=== PATIENT | female | born 1985 | race Caucasian/White ===

== ENCOUNTER 2022-01-30 16:12 | Emergency (ER) | payer OTHER, SELFPAY ==
--- NOTE | 2022-01-30 16:25 | ED.URI ---
HPI - URI/Sore Throat General Chief Complaint: Upper Respiratory Infection Stated Complaint: sorethroat,fever Time Seen by Provider: 01/30/22 16:40 Source: patient and RN notes reviewed Mode of arrival: ambulatory Limitations: no limitations History of Present Illness HPI Narrative: 36-year-old female presents with concern for sore throat. She reports yesterday she felt feverish, had body aches and chills. Reports today she has a sore throat that is painful to swallow. She denies known sick contacts. She denies cough, shortness of breath, nausea, vomiting, diarrhea, headache. MD elicited complaint: sore throat Related Data Home Medications Medication Instructions Recorded Confirmed No Home Medications 01/30/22 01/30/22 Allergies Allergy/AdvReac Type Severity Reaction Status Date / Time No Known Allergies Allergy Verified 01/30/22 16:36 Review of Systems Review of Systems: CONSTITUTIONAL: Reports malaise, chills, sweats, or fever. EYES: Denies visual changes, redness, or discharge. ENT: Denies rhinorrhea, congestion, sinus pain, otalgia. Reports sore throat. CARDIOVASCULAR: Denies chest pain, palpitations, or edema. RESPIRATORY: Reports cough. Denies dyspnea. GASTROINTESTINAL: Denies abdominal pain, nausea, vomiting, diarrhea SKIN: Denies rash or itching. MUSCULOSKELETAL: Reports myalgia. NEUROLOGIC: Denies headache. All systems reviewed & are unremarkable except as noted in HPI and below PMFSH Comments At time of signature, agree with nursing past medical, surgical, social and family history. There is no relevant family history pertinent to the presenting complaint Exam Narrative: GENERAL: Well-appearing, well-nourished, and in no acute distress. HEAD: Normocephalic EYES: PERRLA, conjunctivae clear ENT: Nares clear. Mucous membranes moist. TM pearly adams with sharp light reflex bilaterally; no tragal tenderness. Oropharynx erythematous without lesions. Tonsils enlarged and without exudate, no drooling, no hoarseness, no trismus, uvula midline. NECK: Supple. No lymphadenopathy CHEST: Clear to auscultation, breath sounds equal. No wheezing, rhonchi, rales, or stridor. No respiratory distress, speaks in full sentences. HEART: Regular rate and rhythm. No murmur heard. SKIN: Warm, dry, no rash. NEURO: Alert and oriented x3. PSYCH: Normal mood and affect Course Course Emergency Course: Patient is aware of diagnosis, understands and agrees to treatment plan. Anticipatory guidance given. Patient agrees to follow-up as directed and is aware of reasons to seek care at the emergency department. Portions of this record may have been created with voice recognition software Level of Care: Express Care Visit Vital Signs Vital signs: Reviewed. MDM - URI/Sore Throat MDM Narrative Medical decision making narrative: Differential diagnosis considered: Schmidt virus, strep pharyngitis, allergic rhinitis, upper respiratory tract infection, sinusitis, rhinosinusitis, nasopharyngitis. viral pharyngitis, otitis media, otitis externa, pneumonia, bronchitis, viral cough syndrome, viral syndrome, and influenza. Exam findings show no acute concerns or changes; patient is non-toxic appearing and is in no distress. Patient is appropriate for outpatient treatment and follow-up. Lab Data Attestation: I reviewed the patient's lab results. Critical Care Time Critical Care Time Critical Care Time: No Discharge Plan Discharge Clinical Impression: Acute streptococcal pharyngitis Patient Disposition: Home, Self-Care Condition: Stable Instructions: Antibiotic Form, Strep Throat (ED) Additional Instructions: -Take the medication as prescribed. Throw away the toothbrush after 24hours of antibiotic. -Eat and drink things that are easy to swallow, like tea or soup, or popsicles to suck on. -Oral rinses such as: Salt water gargles and/or may use topical anesthetic (eg. Chloraseptic spray) or lozenges to relieve dryness or throat pain
[2022-01-30 16:34] VITALS: BP 117/72; PULSE 69; RESP 16; TEMP 36.4; O2SAT 100
== END 2022-01-30 16:55 | disposition home or self-care (01) ==
PROVIDERS: Emergency Provider Nurse Practitioner
DX: J02.0 Streptococcal pharyngitis (principal)
CPT/HCPCS: 87880; 99203; G0463

== ENCOUNTER → 2022-03-31 12:03 | Outpatient (CLI) | payer OTHER, SELFPAY ==
--- NOTE | ~2022-03-31 | US_ITS ---
EXAMINATION: US thyroid DATE: 03/31/2022 12:21 INDICATION: Nontoxic goiter, unspecified. TECHNIQUE: Multiple ultrasound images of the thyroid were obtained. COMPARISON: None. FINDINGS: The right thyroid lobe measures 3.4 x 1.6 x 1.4 cm. The left thyroid lobe measures 3.2 x 1.3 x 1.2 c m. In the left thyroid lobe, there is a 3 mm nodule. IMPRESSION: 1. Small thyroid nodule, likely not clinically significant. No follow-up is needed. Reviewed, dictated and finalized at location B. IMPRESSION: 1. Small thyroid nodule, likely not clinically significant. No follow-up is nee ded.
== END ==
PROVIDERS: PCP Family Medicine; Visit Provider Family Medicine
DX: E04.9 Nontoxic goiter, unspecified (principal)
CPT/HCPCS: 76536

== ENCOUNTER 2022-09-04 10:42 | Emergency (ER) | payer OTHER, SELFPAY ==
[2022-09-04 11:54] VITALS: BP 117/88; PULSE 65; RESP 18; TEMP 36.7; O2SAT 100
--- NOTE | 2022-09-04 12:46 | ED.URI ---
HPI - URI/Sore Throat General Chief Complaint: Upper Respiratory Infection Stated Complaint: nasal congestion Time Seen by Provider: 09/04/22 12:46 Source: patient and RN notes reviewed Mode of arrival: ambulatory Limitations: no limitations History of Present Illness HPI Narrative: 37-year-old female presented for complaints of runny nose and cough for 10 days. She also endorses a skin lesion to the left nostril which gets yearly. Patient also endorses right ear pain. She has been taking Tylenol p.m. , Claritin,and Motrin for symptoms. denies Shortness of breath, tinnitus, dizziness, nausea, vomiting, diarrhea, fevers or chills. MD elicited complaint: cough Related Data Allergies Allergy/AdvReac Type Severity Reaction Status Date / Time morphine Allergy Intermediate Abdominal Verified 09/04/22 12:29 Pain Iodinated Contrast Media Allergy Mild Abdominal Verified 09/04/22 12:29 Pain Review of Systems Review of Systems: ROS per HPI PMFSH Past Medical History Medical History delivery affecting Gallbladder & bile duct stone, acute cholecystitis and obstruction Family History Family History Father Alcoholism in family Mother History of stroke Social History Social History Social History: Smoking status: Never smoker Second hand tobacco smoke exposure: No Alcohol intake: current Alcohol use details: Occasionally Substance use: never Substance use type: does not use Gender identity (if verbalized by the patient): Male Sexual Orientation (if Verbalized by the Patient): Straight or Heterosexual Exam Narrative: GENERAL: well-appearing EYES: PERRLA, conjunctivae clear ENT: Mucous membranes moist. Left nare with firm erythematous lesion approx 1cm diameter to nasal vestibule, no active drainage. TMs pearly adams with dull light reflex bilaterally; no tragal tenderness. CHEST: Clear to auscultation, breath sounds equal. No wheezing, rhonchi, rales, or stridor. No respiratory distress, speaks in full sentences. HEART: Regular rate and rhythm. No murmur heard. SKIN: Warm, dry, no rash. NEURO: Alert and oriented x3. PSYCH: Normal mood and affect Course Course Emergency Course: Patient is aware of diagnosis, understands and agrees to treatment plan. Anticipatory guidance given. Patient agrees to follow-up as directed and is aware of reasons to seek care at the emergency department. Portions of this record may have been created with voice recognition software Level of Care: Express Care Visit Vital Signs Vital signs: Vital Signs Temperature 98.0 F 09/04/22 11:54 Pulse Rate 65 09/04/22 11:54 Respiratory Rate 18 09/04/22 11:54 Blood Pressure 117/88 09/04/22 11:54 Pulse Oximetry 100 09/04/22 11:54 Oxygen Delivery Room Air 09/04/22 11:54 Temperature 98.0 F 09/04/22 11:54 Pulse Rate 65 09/04/22 11:54 Respiratory Rate 18 09/04/22 11:54 Blood Pressure 117/88 09/04/22 11:54 Pulse Oximetry 100 09/04/22 11:54 Oxygen Delivery Room Air 09/04/22 11:54 reviewed MDM - URI/Sore Throat MDM Narrative Medical decision making narrative: influenza negative. Results reviewed with patient. Advised supportive measures and signs/symptoms to go to the ER. Pt is appropriate for outpt treatment and f/u. Differential Diagnosis Differential diagnosis: Likely upper respiratory infection, sinusitis and viral infection Lab Data Labs: Influenza A Screen Negative Reference Range: Negative Influenza B Screen Negative Reference Range: Negative Discharge Plan Discharge Clinical Impression: Upper respiratory infection, Nasal vestibulitis
== END 2022-09-04 13:02 | disposition home or self-care (01) ==
PROVIDERS: Emergency Provider Nurse Practitioner Family
DX: J06.9 Acute upper respiratory infection, unspecified (principal); J34.89 Other specified disorders of nose and nasal sinuses
CPT/HCPCS: 87804; 99213; G0463

== ENCOUNTER 2022-11-15 12:05 | Outpatient (CLI) | payer OTHER, SELFPAY ==
--- NOTE | ~2022-11-15 | US_ITS ---
EXAMINATION: US pelvic complete w TV DATE: 11/15/2022 13:23 INDICATION: Encounter for assisted reproductive fertility procedure TECHNIQUE: Multiple transabdominal and endovaginal sonographic images of the pelvis were obtained. COMPARISON: None. FINDINGS: The uterus measures 9.5 x 5.2 x 6.1 cm. The endometrial complex measures 12 mm. The right o vary measures 2.6 x 1.8 x 2.3 cm. There are two or three small follicles of the right ovary which jackie sure up to 4 mm. The left ovary measures 4.4 x 2.3 x 4.0 cm and contains a 2.2 cm cyst. There is norm al vascular flow in the ovaries. There is no free fluid in the pelvis. IMPRESSION: 1. Endometrial thickness measuring 12 mm. 2. Two or three small follicles of the right ovary measuring up to 4 mm. Reviewed, dictated and finalized at location B. EL POLISHER INSIDE
== END 2022-11-15 12:06 ==
LOC: MICIMG 12:07
DX: Z31.83 Encounter for assisted reproductive fertility procedure cycle (principal)
CPT/HCPCS: 76830; 76856

== ENCOUNTER 2023-06-07 07:54 | Outpatient (CLI) | payer BC, SELFPAY ==
--- NOTE | ~2023-06-07 | US_ITS ---
EXAMINATION: US transvaginal DATE: 06/07/2023 08:34 INDICATION: Procreative management. TECHNIQUE: Multiple transvaginal sonographic images of the pelvis were obtained. COMPARISON: Ultrasound 11/15/2022 FINDINGS: The uterus measures 8.9 x 4.9 x 5.2 cm. There is no free fluid in the pelvis. The endometrial complex measures 6 mm in thickness. The right ovary measures 3.2 x 2.3 x 3.0 cm. 5 follicles are noted in ri ght ovary measuring up to 1.2 cm. The left ovary measures 3.0 x 2.7 x 3.0 cm. Two follicles in left o vary are noted measuring up to 9 mm. There is normal vascular flow in the ovaries. IMPRESSION: 1. Normal pelvis. Reviewed, dictated and finalized at location A. IMPRESSION: 1. Normal pelvis.
== END 2023-06-07 07:55 ==
DX: Z31.83 Encounter for assisted reproductive fertility procedure cycle (principal)
CPT/HCPCS: 76830

== ENCOUNTER 2023-06-19 08:01 | Outpatient (CLI) | payer BC, SELFPAY ==
--- NOTE | ~2023-06-19 | US_ITS ---
EXAMINATION: US transvaginal DATE: 06/19/2023 09:01 INDICATION: Appropriate management counseling TECHNIQUE: Multiple endovaginal sonographic images of the pelvis were obtained. COMPARISON: 06/07/2023 FINDINGS: The uterus measures 9.4 x 5 x 5.5 cm. The endometrial complex measures 5 mm. The right ovar y measures 2.8 x 1.8 x 1.9 cm and contains five follicles, the largest which measures 13 mm. The left ovary measures 2.1 x 1.3 x 1.5 cm and contains six follicles, the largest which measures 9 mm. There is normal vascular flow in the ovaries. There is no free fluid in the pelvis. IMPRESSION: 1. Bilateral ovarian follicles as above. Reviewed, dictated and finalized at location L.
== END 2023-06-19 08:02 ==
LOC: GOSHIMG 08:02
DX: Z31.7 Encounter for procreative management and counseling for gestational carrier (principal)
CPT/HCPCS: 76830

== ENCOUNTER 2023-06-26 08:12 | Outpatient (CLI) | payer BC, SELFPAY ==
--- NOTE | ~2023-06-26 | US_ITS ---
EXAMINATION: US transvaginal DATE: 06/26/2023 08:46 INDICATION: Encounter for procreative management counseling. TECHNIQUE: Multiple transvaginal sonographic images of the pelvis were obtained. COMPARISON: Ultrasound 06/19/2023 FINDINGS: The uterus measures 11.3 x 5.3 x 7.2 cm. There is no free fluid in the pelvis. The endometrial comple x measures 9 mm in thickness. The right ovary measures 3.2 x 1.7 x 2.5 cm. There are 5 mm and 6 mm fo llicles in right ovary. The left ovary measures 3.0 x 1.6 x 2.9 cm. There are 4 mm and 5 mm follicles in left ovary. IMPRESSION: 1. Normal pelvis. Reviewed, dictated and finalized at location A. IMPRESSION: 1. Normal pelvis.
== END 2023-06-26 08:13 ==
DX: Z31.7 Encounter for procreative management and counseling for gestational carrier (principal)
CPT/HCPCS: 76830

== ENCOUNTER 2023-06-29 08:33 | Outpatient (CLI) | payer BC, SELFPAY ==
--- NOTE | ~2023-06-29 | US_ITS ---
EXAMINATION: US transvaginal DATE: 06/29/2023 09:09 INDICATION: Procreative management. TECHNIQUE: Multiple transvaginal sonographic images of the pelvis were obtained. COMPARISON: Ultrasound 06/26/2023 FINDINGS: The uterus measures 8.8 x 7.5 x 4.1 cm. There is no free fluid in the pelvis. The endometrial complex measures 9 mm in thickness. The right ovary measures 3.4 x 2.0 x 2.5 cm. There are 5 follicles in ri ght ovary measuring up to 10 mm. The left ovary measures 1.9 x 2.5 x 2.2 cm. There are 4 follicles in left ovary measuring up to 8 mm. There is normal vascular flow in the ovaries. IMPRESSION: 1. Normal pelvis. Reviewed, dictated and finalized at location A. IMPRESSION: 1. Normal pelvis.
== END 2023-06-29 08:34 ==
LOC: GOSHIMG 08:36
PROVIDERS: PCP Obstetrics & Gynecology
DX: Z31.7 Encounter for procreative management and counseling for gestational carrier (principal)
CPT/HCPCS: 76830

== ENCOUNTER 2023-10-11 08:07 | Outpatient (CLI) | payer BC, SELFPAY ==
--- NOTE | ~2023-10-11 | US_ITS ---
EXAMINATION: US transvaginal DATE: 10/11/2023 09:03 INDICATION: Endometrial thickness.. Comparison:Ultrasound dated 06/29/2013 TECHNIQUE: Multiple endovaginal sonographic images of the pelvis performed. FINDINGS: The uterus measures 9.5 x 5.8 x 6.5 cm. The endometrial complex measures 1.4 cm. The right ovary measures 3.5 x 2.1 x 2.8 cm and the left ovary measures 2.4 x 2.4 x 2 cm. There are 6 follicles of the right ovary, largest measuring 8 mm. There are 6 follicles of the left ovary, large st measuring 8 mm. Normal doppler signal in both ovaries. There is no free fluid in the pelvis. There are no abnormal masses seen on either side. IMPRESSION: 1. Mild endometrial thickening measuring 1.4 cm. Reviewed, dictated and finalized at location L. N LABEL DESIGNER
== END 2023-10-11 08:08 ==
DX: Z31.7 Encounter for procreative management and counseling for gestational carrier (principal)
CPT/HCPCS: 76830

== ENCOUNTER 2023-10-16 08:58 | Outpatient (CLI) | payer BC, SELFPAY ==
--- NOTE | ~2023-10-16 | US_ITS ---
Pelvic ultrasound. Clinical History: Encounter for procreative management Technique: Realtime transvaginal scanning of the pelvis was performed. Color flow Doppler and Doppler spectral analysis were performed. Findings: The uterus is anteverted, and measures 9.6 x 4.6 x 6.1 cm. The endometrial stripe has a th ickness of 7 mm. No focal mass is identified. The right ovary measures 3.0 x 2.0 x 2.2 cm. There are 4 small follicular cysts, largest measuring 1 cm. The left ovary measures 2.6 x 2.2 x 1.9 cm. There are 7 small follicular cysts, largest measuring 14 mm. Vascular flow present in both ovaries on Doppler spectral analysis. There is no evidence of free fluid in the cul de sac. Impression: No significant abnormality. Reviewed, dictated and finalized at [facility]. [facility] NURSE Impression: No significant abnormality.
== END 2023-10-16 08:59 ==
DX: Z31.9 Encounter for procreative management, unspecified (principal)
CPT/HCPCS: 76830

== ENCOUNTER 2023-10-25 08:03 | Outpatient (CLI) | payer OTHER, SELFPAY ==
--- NOTE | ~2023-10-25 | US_ITS ---
Pelvic ultrasound. Clinical History: Encounter for appropriate management Technique: Realtime transabdominal and transvaginal scanning of the pelvis was performed. Color flow Doppler and Doppler spectral analysis were performed. Findings: The uterus is anteverted. The endometrial stripe has a thickness of 12 mm. Endometrial str ipe has a triple line pattern (pattern A). No focal myometrial mass is identified. Cervical nabothian cysts are noted. The right ovary measures 3.4 x 1.9 x 2.8 cm. No significant right ovarian or adnexal mass is seen. 3 small antral follicular cysts are present. The left ovary measures 3.9 x 2.2 x 2.6 cm. No significant left ovarian or adnexal mass is seen. 3 [address] internal follicular cysts are present. There is no evidence of free fluid in the cul de sac. Impression: No significant abnormality. Reviewed, dictated and finalized at [facility]. ING SAWYER Impression: No significant abnormality.
== END 2023-10-25 08:04 ==
DX: Z31.7 Encounter for procreative management and counseling for gestational carrier (principal)
CPT/HCPCS: 76830

== ENCOUNTER 2023-12-07 11:20 | Outpatient (CLI) | payer OTHER, SELFPAY ==
--- NOTE | ~2023-12-07 | US_ITS ---
EXAMINATION: US OB transvaginal DATE: 12/07/2023 12:10 INDICATION: First trimester dating TECHNIQUE: Real-time pelvic transabdominal and transvaginal ultrasound was performed. COMPARISON: None. FINDINGS: The uterus measures 12.6 x 7.0 x 8.0 cm. There is an intrauterine gestational sac. A yolk s ac is identified. heart motion is identified measuring 126 beats per minute (bpm) by M-mode Dop pler. The crown rump length measures 7 mm, which correlates with an estimated gestational age o f 6 weeks and 4 day(s) (+/-) 4 day(s). The right ovary measures 2.1 x 2.1 x 3.3 cm. The left ovary measures 1.7 x 1.7 x 2.5 cm. There is no free fluid in the pelvis. IMPRESSION: 1. Live intrauterine with an estimated gestational age of 6 weeks and 4 day(s) (+/-) 4 day( s) and an estimated delivery date of 07/28/2024. Reviewed, dictated and finalized at location B. TRIC MULE OPERATOR IMPRESSION: 1. Live intrauterine with an estimated gestational age of 6 weeks and 4 day(s) (+/-) 4 day(s) and an estimated delivery date of 07/28/2024.
== END 2023-12-07 11:21 ==
PROVIDERS: PCP Obstetrics & Gynecology
DX: Z33.3 Pregnant state, gestational carrier (principal); Z34.90 Encounter for supervision of normal pregnancy, unspecified, unspecified trimester; Z3A.01 Less than 8 weeks gestation of pregnancy
CPT/HCPCS: 76817

== ENCOUNTER → 2023-12-15 08:26 | Outpatient (CLI) | payer OTHER, SELFPAY ==
--- NOTE | ~2023-12-15 | US_ITS ---
EXAMINATION: US OB transvaginal INDICATION: state, gestational carrier TECHNIQUE: Sonography of the pelvis was performed by transabdominal and transvaginal techniques. COMPARISON: 12/07/2023. RESULT: Uterus: 11.1 x 7.2 x 8.4 cm. Anteverted. Homogenous myometrium. Intrauterine gestational sac: Single present. Yolk sac: Present, normal appearing. Embryo: Single present. Ruth rump length: 1.67 cm, corresponding gestational age 8 weeks, 0 days + /- 0 weeks 5 days. Gestational heart rate: present 161 bpm. Subgestational hematoma: Present, measuring 1.6 x 3.6 x 3.8 cm , encompassing approximately 40% of t he gestational sac. Right ovary: 2.3 x 1.9 x 2.0 cm. Vascular flow is present. No adnexal mass. Left ovary: Not visualized. Pelvis free fluid: None. IMPRESSION: Single, live intrauterine gestation. Estimated Gestational Age: 8 weeks, 0 days by crown rump length. EVANGELINA by ultrasound 07/26/2024. Moderate subchorionic hemorrhage. Reviewed, dictated and finalized at location K. TANCE ADDICTION COORDINATOR IMPRESSION: Single, live intrauterine gestation. Estimated Gestational Age: 8 weeks, 0 days by crown rump length. EVANGELINA by ultras ound 07/26/2024. Moderate subchorionic hemorrhage.
== END ==
PROVIDERS: PCP Obstetrics & Gynecology
DX: Z33.3 Pregnant state, gestational carrier (principal)
CPT/HCPCS: 76817

== ENCOUNTER 2023-12-26 10:55 | Outpatient (CLI) | payer OTHER, SELFPAY ==
--- NOTE | ~2023-12-26 | US_ITS ---
EXAMINATION: US OB transvaginal DATE: 12/26/2023 11:20 INDICATION: Surgical following embryo transfer. Follow-up subchorionic hematoma. TECHNIQUE: Real-time pelvic ultrasound utilizing both a transvaginal and transabdominal probe was pe rformed. The interpreting radiologist was not present for the study. COMPARISON: 12/15/2023 FINDINGS: The uterus measures 12.4 x 8.2 x 11.1 cm. There is an intrauterine gestational sac. A yolk sac and f etal pole are identified. The crown rump length measures 2.8 cm, which as concordant within 2 days of the previously estimated gestational age of 9 weeks and 2 days. heart motion is identified jackie suring 161 beats per minute (bpm) by M-mode Doppler. Consistent is a 3.2 x 2.4 x 2.1 cm mixed anechoi c and heterogeneously very hypoechoic subchorionic hematoma along the inferior margin of the gestatio nal sac. The bilateral ovaries are not visualized. There is no free fluid in the pelvis. IMPRESSION: 1. Single living fetus with heart rate of 161 bpm. 2. Silo-rump length of 2.8 cm concordant within 2 days of the previously estimated gestational age b y ultrasound of 9 weeks 2 day(s) with ultrasound estimated date of delivery (EVANGELINA) of 07/28/2024. Plea se correlate with clinical information or earlier ultrasounds for most accurate EVANGELINA. 3. Persistent small subchorionic hematoma. Reviewed, dictated and finalized at location B. IMPRESSION: 1. Single living fetus with heart rate of 161 bpm. 2. Silo-rump length of 2.8 cm concordant within 2 days of the previously estim ated gestational age by ultrasound of 9 weeks 2 day(s) with ultrasound estimate d date of delivery (EVANGELINA) of 07/28/2024. Please correlate with clinical informat ion or earlier ultrasounds for most accurate EVANGELINA. 3. Persistent small subchorionic hematoma.
== END 2023-12-26 10:56 ==
PROVIDERS: PCP Obstetrics & Gynecology
DX: Z33.3 Pregnant state, gestational carrier (principal); Z34.90 Encounter for supervision of normal pregnancy, unspecified, unspecified trimester; Z3A.00 Weeks of gestation of pregnancy not specified
CPT/HCPCS: 76817

== ENCOUNTER 2024-02-13 15:16 | Emergency (ER) | payer OTHER, SELFPAY ==
[2024-02-13 15:47] VITALS: BP 117/72; PULSE 76; RESP 18; TEMP 36.7; O2SAT 99
[2024-02-13 15:48] VITALS: BP 117/72; PULSE 76; RESP 18; TEMP 36.7; O2SAT 99
--- NOTE | 2024-02-13 15:58 | ED.SKABFB ---
HPI - Skin/Abscess/Foreign Bdy General Chief complaint: Skin/Abscess/Foreign Body Stated complaint: Rash on right side of face Time Seen by Provider: 02/13/24 15:58 Source: patient Mode of arrival: ambulatory Limitations: no limitations History of Present Illness HPI narrative: 38-year-old female presents with complaint of burning and itching to right side of forehead that started last night while watching son's baseball game. Patient reports that she was concerned that she was bit by an insect. Woke up this morning with worsening of symptoms, pain, burning and itching to right side of forehead, cheek and behind right ear. Only on right-sided face, now concerned for shingles. patient is approximately 16 weeks . All systems reviewed and negative except as noted above. Related Data Home Medications Medication Instructions Recorded Confirmed Alive Premium 02/13/24 aspirin 81 mg chewable tablet 81 mg PO DAILY 02/13/24 02/13/24 Allergies Allergy/AdvReac Type Severity Reaction Status Date / Time morphine AdvReac Intermediate Abdominal Verified 02/13/24 15:48 Pain Iodinated Contrast Media AdvReac Mild Abdominal Verified 02/13/24 15:48 Pain Review of Systems Review of Systems: CONSTITUTIONAL: Denies fever, chills, or sweats. EYES: Denies visual changes, redness, or discharge. ENT: Denies rhinorrhea, congestion, sore throat, or otalgia. CARDIOVASCULAR: Denies chest pain, palpitations, or edema. RESPIRATORY: Denies cough or dyspnea. GASTROINTESTINAL: Denies abdominal pain, nausea, vomiting, or diarrhea. GENITOURINARY: Denies dysuria or hematuria. SKIN: Reports itchy, painful and burning rash to right side of face. MUSCULOSKELETAL: Denies back pain, joint pain, or myalgia. NEUROLOGIC: Denies headache, numbness, or weakness. PSYCHIATRIC: Denies anxiety or depression. All other systems reviewed are negative, except as documented in HPI. [facility] Past Medical History Medical History delivery affecting Gallbladder & bile duct stone, acute cholecystitis and obstruction Family History Family History Father Alcoholism in family Mother History of stroke Social History Social History Social History: Smoking status: Never smoker Second hand tobacco smoke exposure: No Alcohol intake: current Alcohol use details: Occasionally Substance use: never Substance use type: does not use Living arrangements: with family Occupation/Education: occupation Gender identity (if verbalized by the patient): Male Sexual Orientation (if Verbalized by the Patient): Straight or Heterosexual Comments At time of signature, agree with nursing past medical, surgical, social and family history. There is no relevant family history pertinent to the presenting complaint. Exam Narrative: GENERAL: This is a well-nourished, well-developed patient, in no apparent distress. HEAD: normocephalic, atraumatic. EYES: PERRL. Sclera clear/white. Vision is grossly intact. EARS: External ears normal NOSE: External nose normal NECK: Neck supple, non-tender without lymphadenopathy, masses or thyromegaly. CARDIOVASCULAR: Regular rate and rhythm without murmurs, gallops, or rubs. RESPIRATORY: Clear to auscultation. Breath sounds equal bilaterally. No wheezes, rales, or rhonchi. SKIN: warm, Dry, intact, good texture and turgor. fine erythematous fascicular lesions to right side of forehead, right cheek and behind right ear. NEURO: awake, alert, and oriented to person, place and time. There were no obvious focal neurologic abnormalities. EXTREMITIES: No joint tenderness, effusion, or edema noted. Course Course Level of Care: Express Care Visit Vital Signs Vital signs: Vital Signs Temperature 36.
== END 2024-02-13 16:10 | disposition home or self-care (01) ==
PROVIDERS: Emergency Provider Nurse Practitioner Family
DX: O98.512 Other viral diseases complicating pregnancy, second trimester (principal); B02.9 Zoster without complications; Z3A.16 16 weeks gestation of pregnancy; Z79.82 Long term (current) use of aspirin
CPT/HCPCS: 99213; G0463

== ENCOUNTER 2024-10-06 09:23 | Outpatient (CLI) | payer OTHER, SELFPAY ==
--- NOTE | ~2024-10-06 | CT_ITS ---
EXAMINATION: CT abdomen wo con DATE: 10/06/2024 09:41 INDICATION: Epigastric abdominal pain. TECHNIQUE: Computed tomography (CT) of the abdomen was performed without intravenous contrast. Automa miguelina exposure control and iterative reconstruction technique were employed. The dose-length product wa s 271.25 mGy-cm. COMPARISON: None. FINDINGS: The visualized portions of the lung bases are clear without pneumonia or pleural effusion. The heart size is normal. No pericardial effusion. The liver, spleen, pancreas, adrenal glands, and k idneys are normal. There are no dilated loops of bowel. There are no pathologically enlarged lymph no xochilt. There is no free intraperitoneal fluid. The bones are unremarkable. IMPRESSION: 1. No etiology for the patient's symptoms. Reviewed, dictated and finalized at location A. ECT ENGINEERING MANAGER
== END 2024-10-06 09:24 | disposition home or self-care (01) ==
LOC: MICIMG 09:24
DX: R10.13 Epigastric pain (principal)
CPT/HCPCS: 74150

== ENCOUNTER 2024-10-27 10:03 | Emergency (ER) | payer OTHER, SELFPAY ==
[2024-10-27 10:16] VITALS: BP 113/70; PULSE 82; RESP 18; TEMP 36.9; O2SAT 97
--- NOTE | 2024-10-27 10:24 | ED.URI ---
HPI - URI/Sore Throat General Chief Complaint: Upper Respiratory Infection Stated Complaint: flu symptoms Time Seen by Provider: 10/27/24 10:25 Source: patient, RN notes reviewed and old records reviewed Mode of arrival: ambulatory Limitations: no limitations History of Present Illness HPI Narrative: Patient presents with complaints of 3 days of flu symptoms. She reports that although she has 5 children, she is the only 1 in her house that is sick. she has been trying zqid-lne-dwfsght medications with poor relief. States that this morning she woke up wheezing. She has had fevers, chills, sweats, productive cough. She also has a runny nose. She is not in any distress, including respiratory distress Related Data Allergies Allergy/AdvReac Type Severity Reaction Status Date / Time morphine AdvReac Intermediate Abdominal Verified 10/27/24 10:45 Pain Iodinated Contrast Media AdvReac Mild Abdominal Verified 10/27/24 10:45 Pain metoclopramide (From Reglan) AdvReac Mild Agitated Verified 10/27/24 10:45 Review of Systems Review of Systems: All systems reviewed & are unremarkable except as noted in HPI and below Constitutional: Constitutional: Reports as per HPI, Reports no additional constitutional complaints, Reports body ache(s), Reports chills, Reports fever(s), Reports headache(s) and Reports lethargy ENT: Reports system reviewed and no additional complaints, except as documented, Reports nasal congestion, Reports nasal discharge and Reports sore throat Cardiovascular: Cardiovascular: Reports no additional cardiovascular complaints Respiratory: Respiratory: Reports no additional respiratory complaints, Reports chest congestion and Reports wheezing Gastrointestinal: Gastrointestinal: Reports no additional gastrointestinal complaints PMFSH Past Medical History Medical History Gallbladder & bile duct stone, acute cholecystitis and obstruction delivery affecting Family History Family History Father Alcoholism in family Mother History of stroke Social History Social History Social History: Smoking status: Never smoker Second hand tobacco smoke exposure: No Alcohol intake: current Alcohol use details: Occasionally Substance use: never Substance use type: does not use Living arrangements: with family Occupation/Education: occupation Gender identity (if verbalized by the patient): Male Sexual Orientation (if Verbalized by the Patient): Straight or Heterosexual Comments At the time of my signature, I reviewed and agree with the nursing past medical, surgical, social, and family history. There is no relevant family history pertinent to the patient complaint. Exam Const: General: cooperative, no acute distress, alert, awake and uncomfortable Orientation/consciousness: oriented to person, oriented to place and oriented to time HENMT: Head: normal to inspection Ears: TM abnormal dull bilateral Resp: Effort & Inspection: normal respiratory effort and able to speak in complete sentences Auscultation: clear to auscultation bilaterally, no crackles, no rales, no rhonchi and no wheezes Other: wet cough noted Cardio: Palpation: normal PMI Rate: regular rate Rhythm: regular rhythm Heart sounds: S1 normal heart sound present and S2 normal heart sound present Neuro: General: oriented to person, oriented to place and oriented to time Cranial nerves: Yes CN's II-XII intact bilaterally Psych: Appearance: grossly normal Thought process: Normal thought process present Insight: Good insight present (Psych) Judgement: Good judgement present (Psych) Course Course Level of Care: Express Care Visit Vital Signs Vital signs: Vital Signs Temperature 98.4 F 10/27/24 10:16 Pulse Rate 82 10/27/24 10:16 Respiratory Rate 18 10/27/24 10:16 Blood Pressure 113/70 10/27/24 10:16 Pulse Oximetry 97 10/27/24 10:16 Oxygen Delivery Room Air 10/27/24 10:16 Temperature 98.4 F 10/27/24 10:16 Pulse Rate 82 10/27/24 10:16 Respiratory Rate 18 10/27/24 10:16 Blood Pressure 113/70 10/27/24 10:16 Pulse Oximetry 97 10/27/24 10:16 Oxygen Delivery Room Air 10/27/24 10:16 Reviewed MDM - URI/Sore Throat MDM Narrative Medical decision making narrative: negative flu, negative COVID, negative strep. Culture pending. Patient does not appear to feel well. treat his bronchitis, adding azithromycin for added anti-inflammatory effect. Follow with primary care provider. Patient nontoxic appearing, stable for DC home. Discharge instructions reviewed with patient, as well as provided in writing per nursing staff. The instructions also include specific and strict return/GO TO THE ER as well as f/u information. All questions have been answered, and the patient deny any further questions with discharge and discharge plan. Some parts of this dictation were generated by voice recognition software and may contain typographical and/or grammatical inaccuracies. Differential Diagnosis Differential diagnosis: Likely upper respiratory infection, otitis media, viral infection, bronchitis, influenza and pharyngitis Medical Records Attestation: I reviewed the patient's medical records. Lab Data Attestation: I reviewed the patient's lab results. Discharge Plan Discharge Clinical Impression: Bronchitis Patient Disposition: Home, Self-Care Condition: Stable Instructions: Antibiotic Form, Acute Bronchitis (ED) Additional Instructions: take all medications as prescribed. Follow with primary care provider. Emergency department for new or worse symptoms Patient Language: Uruguayan Prescriptions: New azithromycin 250 mg tablet See Rx Instructions .ROUTE .COMPLEX Qty: 6 0RF Rx Instructions: For 250 mg dose pack: take 500 mg today (day 1), then 250 mg for 4 days (days 2-5) prednisone 50 mg tablet 50 mg PO DAILY Qty: 5 0RF albuterol sulfate [Ventolin HFA] 90 mcg/actuation HFA aerosol inhaler 2 puff inhalation QID PRN (Reason: shortness of breath or wheezing) Qty: 8.5 0RF Follow-up/Referrals: UNKNOWN,DOCTOR [Primary Care Provider] - 1 Week Time of Disposition: 11:21
[2024-10-27 11:12] LABS: EDSTREPNEGPOS1 Negative (Negative)
[2024-10-27 11:18] LABS: EDCOVIDSCREEN Negative (Negative)
[2024-10-27 11:19] LABS: EDINFLUASCREEN Negative (Negative); EDINFLUBSCREEN Negative (Negative)
== END 2024-10-27 11:26 | disposition home or self-care (01) ==
PROVIDERS: Emergency Provider Nurse Practitioner Family
DX: J40 Bronchitis, not specified as acute or chronic (principal); Z20.822 Contact with and (suspected) exposure to COVID-19
CPT/HCPCS: 87081; 87426; 87804; 87880; 99213; G0463

== ENCOUNTER 2025-03-10 16:37 | Emergency (ER) | payer OTHER, SELFPAY ==
--- NOTE | ~2025-03-10 | XR_ITS ---
XR shoulder LT min 2V Ordering provider: Nakia Desir NP History: . pain left shoulder moved heavy pot . Comparison: None. FINDINGS: BONES: No acute fracture or dislocation. JOINT SPACES: The acromioclavicular joint is normal. The glenohumeral joint is normal. SOFT TISSUES: Normal. IMPRESSION: No acute osseous abnormality left shoulder. Reviewed, dictated and finalized at location A.
--- OUTSIDE RECORDS SUMMARY | 2025-03-10 16:39 | XMS_ITS | Data Portability ---
Author Organization [facility] Shopsy , [facility] Address [address] [place] [address] Assessment Encounter Date Assessment Date Assessment LastModified by Organization Details LastModified Time 09/21/2022 09/21/2022 annual exam. - Pap / HPV cotesting ordered. Discussed natural course of HPV infection, ASCCP guidelines - Plans to be a surrogate, no clinical contraindication to . 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 -? Breast lump, not new onset per patient / fam hx of CA breast+. Plan US Left breast and Myriad MyRisk assessment. - Routine labs and immunization with PCP -Depression screen NEG - BMI counseling, diet and exercise reviewed - RTO for annual or PRN [email or web address] Not available 09/24/2022 22:04:50 Plan of Treatment Reminders Order Date Submit Date Provider Last Modified By Organization Details Last Modified Time Details Appointments None recorded. Lab genetic disease analysis, [facility] or tissue [facility], [address] [place] [address], [address], 3 15:46:26 pap, LB 2021 [employer], [address], [place], [address], 2 15:32:14 HPV E6+E7 mRNA, qualitative PCR, cervix 2021 [facility], [address] [place], [address], 2 15:17:53 Referral None recorded. Procedures None recorded. Surgeries None recorded. Imaging US, breast, unilateral - Left Breast US 2021 022 [facility], [address] [place], [address], 15:16:45 Medication Orders None recorded. Patient TargetsNo targets recorded. Patient Instructions Encounter Date Encounter Id Patient Instructions Last Modified By Organization Details Last Modified Time 09/21/2022 [id number] Patient Health Questionnaire-9* [email or web address] Not available 10/18/2022 15:37:53 learning about dietary guidelines [email or web address] Not available 09/21/2022 17:27:02 eating healthy foods: care instructions ckabat Not available 09/21/2022 17:27:02 abuse/domestic violence education ckabat Not available 09/21/2022 17:27:02 weight managemen t education ckabat Not available 09/21/2022 17:27:01 Reason for Referral None Reported. Results Created Date Observation Date Name Description Value Unit Range Abnormal Flag Note LastModifiedBy Organization Detail LastModifiedTime 09/21/2009/22/2022 HPV HIGH RISK HPV high risk Negati ve negati ve normal The HPV High Risk assay is inten ded for use as co-te sting with cytol ogy and not as a subst itute for regul ar cervi praneeth cytol ogy scree barrera. This assay is not inten ded for use as a scree barrera devic e for women under age 30 with mihaela l cervi praneeth cytol ogy. Not Available [address], [address], 09/22/2022 15:17:53 09/21/20 22 09/26/2022 THINP REP TIS PAP clinical information: normal None given Not Available [facility] [address] [place], [address], 09/26/2022 15:32:14 09/21/20 22 09/26/2022 THINP REP TIS PAP LMP: normal NONE GIVEN Not Available [facility] [address] [place], [address], 09/26/2022 15:32:14 09/21/20 22 09/26/2022 THINP REP TIS PAP prev. Pap: normal NONE GIVEN Not Available [address], [address], 09/26/2022 15:32:14 09/21/20 22 09/26/2022 THINP REP TIS PAP prev. BX: normal NONE GIVEN Not Available [address], [address], 09/26/2022 15:32:14 09/21/20 22 09/26/2022 THINP REP TIS PAP source: normal Cervi x Not Available [address], [address], 09/26/2022 15:32:14 09/21/20 22 09/26/2022 THINP REP TIS PAP statement of adequacy: normal Satis facto ry for evalu ation . Endoc ervic al/tr ansfo rmati on zone compo nent prese nt. Age and/o r menst rual statu s not provi ded Not Available [address], [address], 09/26/2022 15:32:14 09/21/20 22 09/26/2022 THINP REP TIS PAP interpretati on/result: normal Negat angela for intra epith elial lesio n or mingo melton . Not Available [address], [address], 09/26/2022 15:32:14 09/21/20 22 09/26/2022 THINP REP TIS PAP comment: normal This Pap test has been evalu ated with compu ter jacey miguelina techn ology . Not Available [address], [address], 09/26/2022 15:32:14 09/21/20 22 09/26/2022 THINP REP TIS PAP cytotechnolo gist: normal DDS, CT( CP) CT scree barrera locat ion: [place] [address] [place] [address] Not Available [facility] [address], [place], [address], 09/26/2022 15:32:14 09/21/20 22 09/26/2022 THINP REP TIS PAP comment EXPLA NATOR Y NOTE: The Pap is a scree barrera test for cervi praneeth cance r. It is not a diagn ostic test and is subje ct to false negat angela and false posit angela resul ts. It is most relia ble when a satis facto ry sampl e, regul kitty obtai tanvir, is submi tted with relev ant clini praneeth findi ngs and histo ry, and when the Pap resul t is evalu ated along with histo jayce and curre nt clini praneeth infor matio n. Not Available [facility] [address], [place], [address], 09/26/2022 15:32:14 Result Notes None recorded. Procedures Surgical History Date Name Laterality Status Provider Name and Address Organization Details Recorded Time 12/29/19 22 [facility] 16:17:57 10/15/19 19 Date of [facility] 09/21/2022 16:14:03 10/15/19 17 section completed [facility] 09/21/2022 16:17:29 Imaging Results None recorded. Procedure Notes None recorded. Medical Equipment None Reported. Medications Name Sig Start Date Stop Date Status Note LastModified by Organization Details LastModified Time cyclobenzap rine 10 mg tablet TAKE 1 TABLET BY MOUTH THREE TIMES DAILY NEEDED FOR SPASM active Not Available Not Available No t Available amoxicillin 875 mg tablet active Not Available Not Available Not Available hydrocodone 7.5 mg-acetamin ophen 325 mg tablet TAKE 1 TABLET BY MOUTH EVERY 4 HOURS NEEDED FOR MODERATE PAIN. NO MORE THAN 6 TABLETS PER DAY. active Not Available Not Available No t Available omeprazole 20 mg capsule,del ayed release active Not Available Not Available Not Available mupirocin 2 % topical ointment active Not Available Not Available Not Available fluticasone propionate 50 mcg/actuati on nasal spray,suspe nsion active Not Available Not Available Not Available sertraline 50 mg tablet TAKE 1 TABLET BY MOUTH ONCE DAILY active Not Available Not Available No t Available bupropion HCl XL 150 mg 24 hr tablet, extended release TAKE 1 TABLET BY MOUTH ONCE DAILY IN THE MORNING active Not Available Not Available No t Available Rhofade 1 % topical cream active Not Available Not Available Not Available Victor ManuelNATHANIELW COVID-19 Ag Self Test kit 09/21 completed Not Available Not Available Not Available Mounjaro 7.5 mg/0.5 mL subcutaneou s pen injector INJECT 7.5MG SUBCUTANE OUSLY ONCE WEEKLY active Not Available Not Available No t Available Mounjaro 5 mg/0.5 mL subcutaneou s pen injector INJECT 5MG SUBCUTANE OUSLY ONCE WEKLY FOR 4 WEEKS, THEN INCREASE TO 7.5MG active Not Available Not Available No t Available Mounjaro 2.5 mg/0.5 mL subcutaneou s pen injector INJECT 2.5MG SUBCUTANE OUSLY ONCE WEEKLY FOR 4 WEEKS, THEN INCREASE TO 5MG DIRECTED active Not Available Not Available No t Available Vitals Date Recorded Body weight Body temperature Body mass index (BMI) Body height Systolic And Diastolic Provider Name and Address Organization Details Last Updated DateTime 09/21/2022 23514.57 g 97.9 [degF] 25.8 kg/m2 162.56 cm 110/70 mm[Hg] Aylin Lobo [employer] 16:13:40 Social History Question Answer Notes LastModified by Organizat ion Details LastModified Time Tobacco Smoking Status Never Smoker Aylin [facility] [employer] [facility] 09/21/2022 16:18:36 What Type Of Diet Are You Following? REGULAR Information not available 09/21/2022 How Many Children Do You Have? 4 [email or web address] Information not available 09/21/2022 What Is Your Relationship Status? Information not available 09/21/2022 Are You Sexually Active? Yes [email or web address] Information not available 09/21/2022 Sex: Unknown Functional Status None recorded. Mental Status None recorded. Family History Relationship Description Onset Age of this Age Resolved Age Notes LastModified by Organization Details LastModified Time Paternal Aunt Malignant tumor of breast 40 [email or web address] Not available 16:33:54 Medical History No medical history recorded. Gynecological History Statement/Question Response Date of Last Colonoscopy Flow Moderate Frequency of Cycle (Q days) 28 Date of LMP 09/11/2022 Date of Last Pap Smear 10/15/2018 Duration of Flow (days) 4 Most Recent Mammogram Current Control Method None Age at Menarche 14 Obstetrics History GPAL:G 2 P 1 1 0 4 Type Value Multiple Births 1 Full Term 1 Premature 1 Living 4 Total 2 Past Encounters Encounter ID Performer Location Encounter Start Date Encounter Closed Date Diagnosis/Indication Diagnosis SNOMED-CT Code Diagnosis ICD10 Code Diagnosis Note [id number] HILARIA VICKERS MD [facility] [address] [place] [address] 09/21/2022 14:59:03 09/25/2022 13:49:07 Gynecologic examination 82978168 Z01.419 Screening for malignant neoplasm of cervix 342236465 Z12.4 Depression screening 171 801371 Z13.31 Breast lump 14126643 N63 .0 Family his tory of breast cancer 282709595 Z80.3 Health Concerns Section Related Observation LastModified by Organization Detai ls LastModified Time None Recorded Concern Status LastModified by Organization Details LastModified Time None Recorded Advance Directives Directive None Recorded Payers Insurance Date Sequence Insurance Name Policy Number Policy Leach Covered Member ID Leach Member ID Guarantor Name 09/21/2022 1 JOE[employer] [facility] [employer] (PPO) Deborah Murphy [id number] Deborah Murphy Notes Date Note Type Note Provider Name and Address Organization Details Recorded Time 09/21/2022 text/html Annual GYNReport ed bypatient.History:no gynecologic complaints Menstrual cycle:Normal menses Urinary symptoms:No hematuria; No incontinence Vulva:No genital lesion Vagina:Normal vaginal discharge Breast:No breast pain; No breast lump; No nipple discharge Current Contraception:Satisfie d with current contraception Sexual complaints:No sexual complaints; No pain during intercourse; Normal libido Menopausal Symptoms:No menopausal symptoms; Normal vaginal lubrication Psychological symptoms:No depression; No anxiety; No PMDD Preventive measures:Needs to schedule mammogram Deborah 37 y/o presents for annual exam and pap smear. Pt would like to discuss about surrogacy . Here for annual mechanic/welder exam.37 year old [id number] concerns: noneCycles: regular, moderate flow, LMP 09/11/2022ontraceptio n: noneSexually activedeclined STI screenLast Pap 10/2018Last Mammo neverColonoscopy never Plans to be a surrogate - desires documents signed to be candidate HILARIA SUAREZ MD [address] [facility], [place], [address], [facility] Sh[facility] 09/24/2022 22:06:32 OBGyn Episode Ob Episode Information Episode Created Date Number of Fetuses Patient Bloodtype Patient rh Status Prepregnancy Weight lbs Domestic Partner Domestic Partner Phone Father Name Bakery Team Leader Status 09/21/20 22 1 CLOSED Fetus Data First Name Last Name Admitted to NICU Weight (g) Sex Living Outcome Pediatric Complications Fetus ID Race Codes Race Delivery Type Prematur e [id number] Dc Calculation Initial Dc Date Initial Exam Date Initial Exam Provider Initial Ultrasound Date Last Menstrual Period Date Ultra Sound Weeks Gestation 0 Eighteen To Twenty Week Dc Update Ultra Sound Date Fundal Height At Umbil Quickening Date Ultra Sound Latest Weeks Gestation Final Dc Confirmed By Final Dc Confirmed Date Final Dc Date Ultra Sound Latest Days Gestation 0 0 Menstrual History Last Menstrual Date Menses Monthly On Bcp Conception Prior Menses Frequency Hcg Plus Date Menarche Onset Age Delivery Information Delivery Date Delivery Type Labor Anesthesia Weeks Gestation Incision Type Labor Labor Length Hrs Delivered By Post Complications Tubal Sterilization Discharge Date Comments 7 30.1 triplets / CS Discharge Information Feeding Method Contraceptive Method Maternal HG B and HCT Levels Ob Episode Information Episode Created Date Number of Fetuses Patient Bloodtype Patient rh Status Prepregnancy Weight lbs Domestic Partner Domestic Partner Phone Father Name Bakery Team Leader Status 09/21/20 22 1 CLOSED Fetus Data First Name Last Name Admitted to NICU Weight (g) Sex Living Outcome Pediatric Complications Fetus ID Race Codes Race Delivery Type 2806.37 [id number] F Full Term [id number] Dc Calculation Initial Dc Date Initial Exam Date Initial Exam Provider Initial Ultrasound Date Last Menstrual Period Date Ultra Sound Weeks Gestation 0 Eighteen To Twenty Week Dc Update Ultra Sound Date Fundal Height At Umbil Quickening Date Ultra Sound Latest Weeks Gestation Final Dc Confirmed By Final Dc Confirmed Date Final Dc Date Ultra Sound Latest Days Gestation 0 0 Menstrual History Last Menstrual Date Menses Monthly On Bcp Conception Prior Menses Frequency Hcg Plus Date Menarche Onset Age Delivery Information Delivery Date Delivery Type Labor Anesthesia Weeks Gestation Incision Type Labor Labor Length Hrs Delivered By Post Complications Tubal Sterilization Discharge Date Comments 1 IUI/ don o sperm Discharge Information Feeding Method Contraceptive Method Maternal HG B and HCT Levels
--- OUTSIDE RECORDS SUMMARY | 2025-03-10 16:40 | XMS_ITS | Clinical Summary ---
Author Organization [facility] Address [address] [place] [address] Care Team Providers Care Credit Analyst Name Role Phone Tona Decker NP Primary Care Provider [phone] Allergies Active Allergy Reactions Criticality Noted Date Comments Iodine Other (See comments) Low 04/13/2023 Severe pain Morphine Other (See comments) Low 04/13/2023 Severe pain Metoclopramide Anxiety,Agitation Medium 02/19/2024 Restlessness Medications vit 36-[id number]-dh a 27mg iron- 800 mcg-250 mg capsule Take 1 tablet by mouth daily Active ciclopirox (LOPROX) 0.77 % suspension 08/14/2024 Active Zepbound 2.5 mg/0.5 mL pen injector 12/08/2024 Active Active Problems Problem Noted Date Diagnosed Date Wellness examination 09/16/2024 Assessment & Plan (09/16/2024 10:37 AM ROLLING MACHINE OPERATOR AUTOMATIC): Routine health maintenance objectives discussed and orders placed for any outstanding screening studies. Physical exam performed as above. Routine annual labs obtained and will be reviewed with patient when results available. Age-appropriate anticipatory guidance and counseling was provided and reviewed including: Encouraged regular physical activity--moderate activity for a total of 150 minutes per week over 3-5 days. Encouraged healthy diet with regular fresh fruits and vegetables limited in processed carbohydrates. Alcohol use Nicotine use Depression screening History of triplet in prior 09/16/2024 Diastasis recti 09/16/2024 Assessment & Plan (09/16/2024 1:02 PM ROLLING MACHINE OPERATOR AUTOMATIC): Patient needs evaluated for hiatal hernia. Abdominal CT pending. Referral to MIS/hernia. High calcium levels 09/16/2024 Assessment & Plan (09/16/2024 12:58 PM ROLLING MACHINE OPERATOR AUTOMATIC): PTH and vitamin-D levels ordered Epigastric pain 09/16/2024 Assessment & Plan (09/16/2024 1:00 PM ROLLING MACHINE OPERATOR AUTOMATIC): We will screen H pylori. Additionally have concerns for hernia given the extensive diastasis recti and patient's history. Have concern for hiatal hernia. Shingles 02/18/2024 Overview (09/16/2024): Had shingles in February while . History of cholecystectomy 06/02/2022 Overview (09/16/2024): Had gallbladder removed emergently in 2021. Situational mixed anxiety and depressive disorde r 10/21/2020 Assessment & Plan (09/16/2024 10:37 AM ROLLING MACHINE OPERATOR AUTOMATIC): Denies any current issues. Resolved Problems Problem Noted Date Diagnosed Date Resolved Date care following vaginal delivery 07/22/2024 09/08/2024 Overview (07/23/2024): 07/22/24, PPD#1 (JF) S/p uncomplicated vaginal delivery - surrogate EBL 300 cc, Hgb 10.7 O+, Rubella immune Vital signs reviewed and normal Ambulating, tolerating PO, voiding spontaneously, lochia moderate, pain controlled MOF: pumping and donating MOC: s/p partner vasectomy VTE ppx: The patient has the following MAJOR risk factors none and the following MINOR risk factors BMI 30-39. SCDs ordered and frequent ambulation for VTE prophylaxis. Mood: stable Dispo: Desires discharge home tomorrow. 07/23/2024 PPD #2 (CZ) EBL 300 cc, Hgb 10.7 O+, Rubella immune Vital signs reviewed and normal Ambulating, tolerating PO, voiding spontaneously, lochia moderate, pain controlled MOF: pumping and donating MOC: s/p partner vasectomy VTE ppx: The patient has the following MAJOR risk factors none and the following MINOR risk factors BMI 30-39. SCDs ordered and frequent ambulation for VTE prophylaxis. Left flank pain Afebrile UA/Culture sent Mood: stable EPDS 4 Two week mood check Dispo: Discharge teaching provided including PPD/PPA, pre-e, and bleeding/clotting precautions Follow-up: 2 week mood check with Lorena [address] Hodges Encounter for elective induction of labor 07/21/2024 09/16/2024 Overview (07/23/2024): 07/21/2024, 0730 (ISHA): eDborah Kohli is a 38 y.o. female at 39w2d who is dated by IVF and is being admitted for an induction of labor secondary to AMA, IVF and h/o LTCS -- Surrogate - per patient and surrogate request MD only for delivery. OK for CNM management of labor - plan co-managed with . This was discussed with Gretta garcia at the surrogate agency [facility], the patient and intended parents. Admit to L&D: Consents signed and placed in chart. Labs: O+, Hgb: 10.8 -- begin induction of labor with pitocin -- consider AROM when able - pt desires epidural prior to AROM FWB: Continuous monitoring. tracing category I. ID: 3rd trimester HIV (>28 wga) negative . GBS negative. RPR on admission: negative. History of genital HSV or HSV 1/2 seropositivity: No. -- Shingles in . S/p antiviral treatment with Valtrex, EFW AGA Membrane Status: intact. Indications for UDS: none. Verbal consent obtained for UDS: Not indicated. MOF: will be formula fed. Pt plans to pump and donate MOC: Plans to use partner vasectomy for contraception. Pain management: Desires epidural. Post DVT prophylaxis: The patient has the following MAJOR risk factors none and the following MINOR risk factors BMI 30-39. SCDs will be ordered for VTE prophylaxis . 07/21/2024, 1145 (ISHA): VSS, AF FHT Cat 1 Beginning to feel painful contractions SVE and membrane sweep per pt request - 3/50/-2, head well applied Plans to prepare for epidural and will AROM with IUPC placement after comfortable with epidural Continue IOL 07/21/2024, 1430 (JF): VSS, AF Comfortable with epidural OT infusing at 12 mu/hr SVE, AROM and IUPC placed with consent:/2, clear fluid, moderate amount Anterior placenta - IUPC guided posterior, amniotic fluid flash noted, no resistance felt on insertion Anticipate 07/21/2024, 1700 (JF): VSS, AF FHT Cat 2 - VDs, overall reassured by moderate variability and labor progression. Decels resolve with position changes Consider amnio infusion S/p epidural - feeling significant pressure and psoas pain, WINDERMAN to bedside for evaluation OT infusing at 14 mu/hr - continue to titrate as tolerating SVE and membrane sweep with consent: IV diphenhydramine 25 mg and TUMS 1000 mg given Plan frequent position changes to encourage decent - pt s/p hands and knees for 20-25 min Anticipate - discussed with Dr. Hodges History of 02/18/2024 024 Overview (02/29/2024): Ms. Kohli has had 1 prior delivery for triplets in 2017. She has discussed mode of delivery with her primary OB and is planning TOLAC. Surrogate , antepartum 02/18/2024 09/08/2024 resulting from in vitro fertilization, antepartum 02/18/2024 09/08/2024 Overview (02/29/2024): In vitro fertilization (IVF) or assisted reproductive technologies (ART) comprise of 1-2% of pregnancies. Even if preimplantation genetic testing (PGT) is performed on embryos, genetic screening such as NIPT is recommended due to the residual risk of mosaicism not detecting aneuploidies. There is also an increased risk of imprinting syndromes in IVF pregnancies. Other risks associated with IVF include miscarriage, congenital anomalies specifically cardiac defects, placental disorders, gestational diabetes, section, delivery, growth restriction, and stillbirth. Plan: [x] Normal PGT-A, low risk NIPT [x] ASA 81 mg at 12 weeks [x] Specialized anatomic survey at 18-22 weeks [] echocardiogram at 20-22 weeks (completed at [facility]) [] 3rd trimester growth ultrasound [] Weekly testing at 36 weeks [] Consider risk reducing induction of labor at 39 weeks Supervision of high-risk pre gnancy, second trimester 02/18/2024 09/08/2024 Overview (02/18/2024): [] Co-management vs. [] Full MFM Care; [] Red Team [] Blue Team Referring Provider: Catalina Ardon [phone] [] or Medicare Insurance [x] Dating Criteria: D5 FET 11/08/23 with EVANGELINA 07/26/24 [x] Labs: Rh [O+], Ab [negative], Rubella [immune], HIV [non-reactive], HepBSAg [non-reactive], RPR [non-reactive], Hep C [non-reactive], Varicella [not done], GC/CT [negative/negative] [x] Aneuploidy: NIPT negative [x] Carrier Screening: [x] CBC/Hgb: 12.3/36.6/plt 340 [] Early 1hr GTT (if indicated) [x] UCx: 01/03/24: no growth [] Pap: [] Flu Shot (Jun-Sep): [] COVID [] LD ASA (if indicated) [] EPDS [ ]; PNBHS referral (if indicated) 2nd Tri Labs: [] Anatomy ultrasound: [] CBC/1hr gtt at 24-28wks: [] Tdap (27-36wks): [] Rhogam at 28 wks (if Rh neg): 3rd Tri Labs: [] CBC/HIV/RPR/T&S: [] GBS: [] GC/CT (if indicated): [] testing: [] RSV Counseling [] MOD: [] Place of delivery: [] Last clinic visit SVE: [] IOL start agent: [] Epidural: [] Blood Products [] Consents signed: [] Stop ASA [] MOC: [] Method of feeding: [] Bog Cutter: [] PP Depression Discussed: Antepartum multigravida of a dvanced maternal age 0502/18/2024 09/08/2024 Overview (02/29/2024): Counseling 02/29/2024: We discussed that advanced maternal age (AMA) is associated with increased risks of spontaneous , gestational diabetes, and hypertensive disorders of . A donor egg was used, and she has had normal PGT-A and low risk NIPT. For the increased risk of preeclampsia, we recommend starting aspirin 81 mg at 12 weeks daily, which she is already taking. Plan: [x] ASA 81 mg daily [] 3rd trimester growth ultrasound [] testing weekly starting at 36 weeks Migraine 11/24/2010 09/16/2024 IBS (irritable bowel syndrome) 03/24/2008 09/16/2024 Encounters Date Type Department Care Team Description 12/23/2024 2:30 PM CDT Office Visit [facility] Minimally Invasive Surgery [address] [place] [address] [address] Floor, [place] [address] Rafita Hickey MD Gastroesophageal reflux disease without esophagitis (Primary Dx); Epigastric pain; Diastasis recti from Last 3 Months Immunizations Immunization Administration Dates Next Due Hep B Vaccine 11/14/1999,05/04/1999,12/30/1998 HiB 11/08/1989 IPV 05/17/1993 Influenza, Quadrivalent, Spl it, Preservative Free, Intramuscular 09/29/2014 Influenza, Trivalent, IM (MDV) 2,07/05/2011,07/14/2010,07/23 Influenza, Trivalent, Preser vative Free, Intramuscular 07/03/2011 MMR 05/17/1993,11/08/1989 Td, adsorbed 11/07/2002,04/05/1993 Tdap 05/06/2024 Surgical History Surgery Date Site/Laterality Comments CHOLECYSTECTOMY SECTION Medical History Medical History Date Comments Encounter for elective induc tion of labor 07/21/2024 07/21/2024, 0730 (ISHA): Deborah Kohli is a 38 y.o. female at 39w2d who is dated by IVF and is being admitted for an induction of labor secondary to AMA, IVF and h/o LTCS -- Surrogate - per patient and surrogate request MD only for delivery. OK for CNM management of labor - plan co-managed with MD. This was discussed with contact, Gretta at the surrogate ag Family History Medical History Relation Name Comments Hypertension Mother Breast cancer Neg Hx Colon cancer Neg Hx Ovarian cancer Neg Hx Uterine cancer Neg Hx Relation Name Status Comments Mother Social History Tobacco Use Types Packs/Day Years Used Date Smoking Tobacco: Never Smokeless Tobacco: Never Tobacco Cessation:Counseling Given: Not Answered Social Connection and Isolat ion Panel [NHANES] Answer Date Recorded In a typical week, how many times do you talk on the phone with family, friends, or neighbors? More than three times a week 07/21/2024 How often do you get togethe r with friends or relatives? More than three times a week 07/21/2024 How often do you attend chur ch or catholic services? Never 07/21/2024 Do you belong to any clubs o r organizations such as hinduism groups, unions, fraternal or athletic groups, or school groups? No 07/21/2024 How often do you attend meet ings of the clubs or organizations you belong to? Never 07/21/2024 Are you , , di vorced, , never , or living with a partner? 07/21/2024 AUDIT-C Answer Date Recorded Q1: How often do you have a drink containing alcohol? Never 07/21/2024 Q2: How many drinks containi ng alcohol do you have on a typical day when you are drinking? Patient does not drink Q3: How often do you have si x or more drinks on one occasion? Never 07/21/2024 Overall Financial Resource Strain (CARDIA) Answe r Date Recorded How hard is it for you to pa y for the very basics like food, housing, medical care, and heating? Not hard at all 07/21/2024 PHQ-2 Answer Date Recorded PHQ-2 Total Score (If total score is 3 or more points, staff should administer the PHQ-9) 0 07/21/2024 [facility] - Occupational Stress Questionnaire Answer Date Recorded Do you feel stress - tense, restless, nervous, or anxious, or unable to sleep at night because your mind is troubled all the time - these days? Not at all 07/21/2024 Exercise Vital Sign Answer Date Recorde d On average, how many days pe r week do you engage in moderate to strenuous exercise (like a brisk walk)? 7 days 07/21/2024 On average, how many minutes do you engage in exercise at this level? 30 min 07/21/2024 Hunger Vital Sign Answer Date Recorded Within the past 12 months, y ou worried that your food would run out before you got the money to buy more. Never true 07/21/20 24 Within the past 12 months, t he food you bought just didn't last and you didn't have money to get more. Never true 07/21/2024 PRAPARE - Transportation Answer Date Re corded In the past 12 months, has l ack of transportation kept you from medical appointments or from getting medications? No 04/2024 In the past 12 months, has l ack of transportation kept you from meetings, work, or from getting things needed for daily living? No 07/21/2024 [place] Depression Scale Answer Date Recorded [place] Depression Scale Total 3 09/05/2024 The thought of harming myself has occurred to me . Never 09/05/2024 Housing Stability Vital Sign Answer Natan e Recorded In the last 12 months, was t here a time when you were not able to pay the mortgage or rent on time? No 07/21/2024 In the past 12 months, how m any times have you moved where you were living? 1 07/21/2024 At any time in the past 12 m [facility], were you homeless or living in a residential (including now)? No 07/21/2024 Personal Safety Answer Date Recorded Have you ever been in or are you currently in a harmful physical or emotional relationship or is someone making you feel afraid or unsafe? Denies 07/21/2024 Comments Unknown Sex and Gender Information Value Date Recorded Sex Assigned at Not on file Legal Sex Female 3:28 PM CDT Gender Identity Not on file Sexual Orientation Not on file Obstetrics History Para Term AB IAB SAB Ectopic Multiple Livin g Live Births 3 3 2 1 1 5 5 Date Outcome GA Total Labor Labor/2nd/3rd Weight Sex Type Anes PTL Dayana A1 A5 Name Clin 2010 Term 39w 0d 2.807 kg (6 lb 3 oz) F Vagina l Epidur al Livin g Delivery Location:[facility] 2016 30w 0d 1.503 kg (3 lb 5 oz) F C-Sect ion Combin ed Spinal /Epidu ral Livin g Delivery Location:[facility] 2016 30w 0d 1.332 kg (2 lb 15 oz) F C-Sect ion Combin ed Spinal /Epidu ral Livin g Delivery Location:[facility] 2016 30w 0d 1.616 kg (3 lb 9 oz) M C-Sect ion Combin ed Spinal /Epidu ral Livin g Delivery Location:[facility] 2023 Term 39w 2d 3h 30m 3h 05m/0h 20m/0h 05m 3.15 kg (6 lb 15.1 oz) F Epidur al N Livin g 7 9 Edgardo ellison, Gretta Rudd MD Complications:None Delivery Location:[facility] ([facility]) Last Filed Vital Signs Vital Sign Reading Time Taken Comments Blood Pressure 117/81 12/23/2024 2:52 PM CDT Pulse 79 12/23/2024 2:52 PM CDT Temperature 36.5 C (97.7 F) 12/23/2024 2:52 PM CDT Respiratory Rate 16 12/23/2024 2:52 PM CDT Oxygen Saturation 100% 12/23/2024 2:52 PM CDT Inhaled Oxygen Concentration - - Weight 76.7 kg (169 lb) 12/23/2024 2:52 PM CDT Height 162.6 cm (5' 4) 12/23/2024 2:52 PM CDT Body Mass Index 29.01 12/23/2024 2:52 PM CDT Plan of Treatment Health Maintenance Due Date Last Done Comments Cervical Cancer Screening 1986 Hepatitis C Screening 1986 Varicella Vaccines (1 of 2 - 13+ 2-dose series) 1999 Influenza Vaccine (Season Ended) 2025 09/29/2014, 08/02/2012, 07/05/2011, Additional history exists Depression Screening 09/05/2025 09/05/2024, 07/21/20 24 Covid-19 Vaccine ( season) 2025 08/30/2021, 08/02/2021 Postponed from 06/15/2024 (Patient declined, but will receive in the future) Regular Well Visit/Exam 18-64 09/16/2025 09/16/2024 DTaP/Tdap/Td Vaccine (2 - Td or Tdap) 05/06/2034 05/06/2024, 11/07/2002, 04/05/1993 Hepatitis B Screening Completed 11/14/1999 , 05/04/1999, 12/30/1998 HPV Vaccines Aged Out No longer eligi ble based on patient's age to complete this topic Pneumococcal vaccine <65 Aged Out No longer eligible based on patient's age to complete this topic Insurance [id number] [employer]LEGIANCE Tuan800NA [employer]LEGIANCE Advance Directives For more information, please contact: [phone] * Full Code (Latest Code Status on File) Date Activated Date Inactivated Comments 07/21/2024 7:21 PM 07/23/2024 4:10 PM * Full Code Date Activated Date Inactivated Comments 07/21/2024 6:24 AM 07/21/2024 7:21 PM Full CPR in case of cardiopulmonary arrest Care Teams Credit Analyst Relationship Specialty Start Date End Date Tona Decker NP PCP - General Internal Medicine 09/16/24
--- OUTSIDE RECORDS SUMMARY | 2025-03-10 16:40 | XMS_ITS | Encounter Summary ---
Author Organization [facility] Healthcare Address [address] [place] [address] Care Team Providers Care Cow Tester Name Role Phone Tona Decker NP Primary Care Provider [phone] Encounter Details Date Type Department Care Team (Late st Contact Info) Description 10/06/2024 Orders Only [facility] Health Information Management [address] [place] [address] Scanning, Provider Social History Tobacco Use Types Packs/Day Years Used Date Smoking Tobacco: Never Smokeless Tobacco: Never Social Connection and Isolat ion Panel [NHANES] Answer Date Recorded In a typical week, how many times do you talk on the phone with family, friends, or neighbors? More than three times a week 07/21/2024 How often do you get togethe r with friends or relatives? More than three times a week 07/21/2024 How often do you attend chur or caodaism services? Never 07/21/2024 Do you belong to any clubs o r organizations such as bahai groups, unions, fraternal or athletic groups, or [...] staff should administer the PHQ-9) 0 07/21/2024 [facility] - Occupational Stress Questionnaire Answer Date Recorded [...] things needed for daily living? No 07/21/2024 Campbell Depression Scale Answer Date Recorded Campbell Depression Scale Total 3 09/05/2024 The thought [...] any time in the past 12 m [facility], were you homeless or living in a long-term (including now)? No 07/21/2024 Personal Safety Answer Date Recorded Have you ever been in or are you currently in a harmful physical or emotional relationship or is someone making you feel afraid or unsafe? Denies 07/21/2024 Comments No Sex and Gender Information Value Date Recorded Sex Assigned at Not on file Legal Sex Female 3:28 PM CDT Gender Identity Not on file Sexual Orientation Not on file documented as of this encounter Plan of Treatment Not on file documented as of this encounter Procedures Procedure Name Priority Date/Time Associated Diagnosis Comments SCAN - RADIOLOGY/IMAGING 10/06/2024 documented in this encounter Results * SCAN - RADIOLOGY/IMAGING (10/06/2024) Anatomical Region Laterality Modality Other us Provider Scanning Final Result documented in this encounter Visit Diagnoses Not on filedocumented in this encounter Care Teams Cow Tester Relationship Specialty Start Date End Date Tona Decker NP PCP - General Internal Medicine 09/16/24 documented as of this encounter
--- OUTSIDE RECORDS SUMMARY | 2025-03-10 16:40 | XMS_ITS | Referral Summary ---
Author Organization [facility] Address [address] [place] [address] Care Team Providers Care Wheel Blocker Name Role Phone Tona Decker NP Primary Care Provider [phone] Encounters Date Type Department Care Team Description 12/23/2024 2:30 PM CDT Office Visit [facility]) [facility] Minimally Invasive Surgery [address] [place] [address] 12th [place], [place] [address] Rafita Hickey MD Gastroesophageal reflux disease without esophagitis (Primary Dx); Epigastric pain; Diastasis recti from Last 3 Months Allergies Active Allergy Reactions Criticality Noted Date Comments Iodine Other (See comments) Low 04/13/2023 Severe pain Morphine Other (See comments) Low 04/13/2023 Severe pain Metoclopramide Anxiety,Agitation Medium 02/19/2024 Restlessness Medications vit 28-[id number]-dh a 27mg iron- 800 mcg-250 mg capsule Take 1 tablet by mouth daily Active ciclopirox (LOPROX) 0.77 % suspension 08/14/2024 Active Zepbound 2.5 mg/0.5 mL pen injector 12/08/2024 Active Active Problems Problem Noted Date Diagnosed Date Wellness examination 09/16/2024 Assessment & Plan (09/16/2024 10:37 AM PRINTING ESTIMATOR): Routine health maintenance objectives discussed and orders [...] 09/16/2024 Assessment & Plan (09/16/2024 1:02 PM PRINTING ESTIMATOR): Patient needs evaluated for hiatal hernia. Abdominal CT pending. Referral to MIS/hernia. High calcium levels 09/16/2024 Assessment & Plan (09/16/2024 12:58 PM PRINTING ESTIMATOR): PTH and vitamin-D levels ordered Epigastric pain 09/16/2024 Assessment & Plan (09/16/2024 1:00 PM PRINTING ESTIMATOR): We will screen H pylori. Additionally have concerns for hernia given the extensive diastasis recti and patient's history. Have concern for hiatal hernia. Shingles 02/18/2024 Overview (09/16/2024): Had shingles in February while . History of cholecystectomy 06/02/2022 Overview (09/16/2024): Had gallbladder removed emergently in 2021. Situational mixed anxiety and depressive disorde r 10/21/2020 Assessment & Plan (09/16/2024 10:37 AM PRINTING ESTIMATOR): Denies any current issues. Resolved Problems Problem Noted Date Diagnosed Date Resolved Date care following vaginal delivery 07/22/2024 09/08/2024 Overview (07/23/2024): 07/22/24, PPD#1 (ISHA) S/p uncomplicated vaginal delivery - surrogate EBL [...] 07/21/2024 09/16/2024 Overview (07/23/2024): 07/21/2024, 0730 (ISHA): Deborah Kohli is a [...] discussed with contact, Gretta at the surrogate agency [facility], the [...] consent obtained for UDS: Not indicated. MOF: Infant will be formula fed. Pt plans to pump and donate MOC: Plans to use partner vasectomy for contraception. Pain management: Desires epidural. Post DVT prophylaxis: The patient has the following MAJOR risk factors none and the following MINOR risk factors BMI 30-39. SCDs will be ordered for VTE prophylaxis . 07/21/2024, 1145 (): VSS, AF FHT Cat 1 Beginning to feel painful contractions SVE and membrane sweep per pt request - 50/-2, head well applied Plans to prepare for epidural and will AROM with IUPC placement after comfortable with epidural Continue IOL 07/21/2024, 1430 (): VSS, AF Comfortable with epidural OT infusing at 12 mu/hr SVE, AROM and IUPC placed with consent:/-2, clear fluid, moderate amount Anterior placenta - IUPC guided posterior, amniotic fluid flash noted, no resistance felt on insertion Anticipate 07/21/2024, 1700 (): VSS, AF FHT Cat 2 - VDs, overall reassured by moderate variability and labor progression. 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 [] Full [facility] Care; [] Red Team [] Blue Team Referring Provider: Catalina Ardon [phone] [] Enval or Medicare Insurance [x] Dating Criteria: D5 [...] [] MOC: [] Method of feeding: [] Food Or Baggage Handling [place]: [] PP Depression Discussed: Antepartum multigravida of [...] 09/16/2024 IBS (irritable bowel syndrome) 03/24/2008 09/16/2024 Immunizations Immunization Administration Dates Next Due Hep B Vaccine 11/14/1999,05/04/1999,12/30/1998 HiB 11/08/1989 IPV 05/17/1993 Influenza, Quadrivalent, Spl it, Preservative Free, Intramuscular 09/29/2014 Influenza, Trivalent, IM (MDV) 2,07/05/2011,07/14/2010,07/23 Influenza, Trivalent, Preser vative Free, Intramuscular 07/03/2011 MMR 05/17/1993,11/08/1989 Td, adsorbed 11/07/2002,04/05/1993 Tdap 05/06/2024 Social History Tobacco Use Types Packs/Day Years [...] often do you attend chur ch or anglican services? Never 07/21/2024 Do you belong to any clubs o r organizations such as pentecostalism groups, unions, fraternal or athletic groups, or [...] staff should administer the PHQ-9) 0 07/21/2024 [facility] - Occupational Stress [...] things needed for daily living? No 07/21/2024 [place] Depression Scale Answer Date Recorded [place] Depression Scale Total 3 09/05/2024 The thought [...] any time in the past 12 m [facility], were you homeless or living in a [place] health care facility (including now)? No 07/21/2024 Personal Safety Answer [...] on file Sexual Orientation Not on file Last Filed Vital Signs Vital Sign Reading [...] 12/23/2024 2:52 PM CDT Plan of Treatment Not on file Insurance [employer] [place] [address] Advance Directives For more information, please contact: [phone] * Full Code (Latest Code Status on File) Date Activated Date Inactivated Comments 07/21/2024 7:21 PM 07/23/2024 4:10 PM * Full Code Date Activated Date Inactivated Comments 07/21/2024 6:24 AM 07/21/2024 7:21 PM Full CPR in case of cardiopulmonary arrest Care Teams Wheel Blocker Relationship Specialty Start Date End Date Tona Decker NP PCP - General Internal Medicine 09/16/24
--- NOTE | 2025-03-10 16:43 | ED_ITS ---
HPI - Extremity Injury (Upper) General Chief Complaint: Extremity Injury, Upper Stated Complaint: LT Shoulder Injury Time Seen by Provider: 03/10/25 17:07 Source: patient, RN notes reviewed and old records reviewed Mode of arrival: ambulatory Limitations: no limitations History of Present Illness HPI narrative: 39 year old female who presents to [facility] care with complaints of moving heavy pot of soil about 2 weeks ago and then 2 days later started with pain to left shoulder. Patient reports that she has pain to the upper posterior arm which is mild and then has occasional nerve pain which goes down her left arm down to her 4th and 5th fingers. Patient has full mobility of her left shoulder without increased pain. Patient reports that she has been applying icy hot to shoulder using ice and also has been taking Ibuprofen. Patient has strong pulses to left arm ,fingers fully mobile warm and pink.Patient reports that she has appointment with orthopedic doctor in [facility]. complaint: injury to: left and shoulder Onset (ago): week(s) (2) Other injuries: none Place: home Severity: mild Severity scale (1-10): 2 Treatments prior to arrival: cold therapy, NSAIDS and other (Icy hot to shoulder) Related Data Allergies Allergy/AdvReac Type Severity Reaction Status Date / Time morphine AdvReac Intermediate Abdominal Verified 03/10/25 17:05 Pain Iodinated Contrast Media AdvReac Mild Abdominal Verified 03/10/25 17:05 Pain metoclopramide (From Reglan) AdvReac Mild Agitated Verified 03/10/25 17:05 Review of Systems Review of Systems: CONSTITUTIONAL: Denies fever, chills, or sweats. EYES: Denies visual changes, redness, or discharge. ENT: Denies rhinorrhea, congestion, sore throat, or otalgia. CARDIOVASCULAR: Denies chest pain, palpitations, or edema. RESPIRATORY: Denies cough or dyspnea. GASTROINTESTINAL: Denies abdominal pain, nausea, vomiting, or diarrhea. GENITOURINARY: Denies dysuria or hematuria. SKIN: Denies rash or itching. MUSCULOSKELETAL: Denies back pain,positive for left shoulder pain with occasional nerve pain down left arm into 4th and 5th fingers., or myalgia. NEUROLOGIC: Denies headache, numbness, or weakness. PSYCHIATRIC: Denies anxiety or depression. All systems reviewed & are unremarkable except as noted in HPI and below [facility] Past Medical History Medical History (Updated 03/11/25 @ 22:50 by Nakia Desir NP) Gallbladder & bile duct stone, acute cholecystitis and obstruction delivery affecting Surgical History Surgical History (Updated 03/11/25 @ 22:43 by Nakia Desir NP) H/O section 2017 Family History Family History Father Alcoholism in family Mother History of stroke Social History Social History Social History: Smoking status: Never smoker Second hand tobacco smoke exposure: No Alcohol intake: current Alcohol use details: Occasionally Substance use: never Substance use type: does not use Living arrangements: with family Occupation/Education: occupation Gender identity (if verbalized by the patient): Male Sexual Orientation (if Verbalized by the Patient): Straight or Heterosexual Comments At time of signature, agree with nursing past medical, surgical, social and family history. There is no relevant family history pertinent to the presenting complaint Exam Narrative: GENERAL: Well-appearing, well-nourished, and in no acute distress. HEAD: Normocephalic, atraumatic. EYES: PERRLA and EOMI. ENT: Nares clear, no rhinorrhea or epistaxis. Mucous membranes moist. NECK: Supple no lymphadenopathy. CHEST: Clear to auscultation. No respiratory distress.SAO2 98% on room air HEART: Regular rate and rhythm. No murmur heard. Normal peripheral pulses. ABDOMEN: Soft, nontender, nondistended, normal active bowel sounds. EXTREMITIES: Normal range of motion. No edema. Reports pain to left shoulder for 2 week duration after moving heavy flower pot has most discomfort to posterior aspect of upper arm with intermittent nerve pain down arm to 4th and 5th finger. patient has full mobility of shoulder and arm, pulses of strong quality left arm with sensation intact. SKIN: Warm, dry, no rash. NEURO: No focal deficits. Alert and oriented x3. Course Course Emergency Course: Patient is aware of diagnosis, understands and agrees to treatment plan.? Anticipatory guidance given.? Patient agrees to follow-up as directed and is aware of reasons to seek care at the emergency department. Portions of this record may have been created with voice recognition software Level of Care: Express Care Visit Vital Signs Vital signs: Vital Signs Temperature 37.1 C 03/10/25 16:46 Pulse Rate 68 03/10/25 16:46 Respiratory Rate 17 03/10/25 16:46 Blood Pressure 126/86 03/10/25 16:46 Pulse Oximetry 98 03/10/25 16:46 Oxygen Delivery Room Air 03/10/25 16:46 Temperature 37.1 C 03/10/25 16:46 Pulse Rate 68 03/10/25 16:46 Respiratory Rate 17 03/10/25 16:46 Blood Pressure 126/86 03/10/25 16:46 Pulse Oximetry 98 03/10/25 16:46 Oxygen Delivery Room Air 03/10/25 16:46 Reviewed MDM - Extremity Injury (Upper) Differential Diagnosis Differential diagnosis: Likely other (strain of left shoulder, tendenitis left arm, pain left shoulder, ) Medical Records Attestation: I reviewed the patient's medical records. Imaging Data Attestation: I personally reviewed and interpreted this imaging study as follows: My impression: no acute osseous findings in left shoulder Radiologist's impression: [place] [address] XRay Report Signed Patient: Deborah Kohli : 1985 MR#: [id number] Age: 39 Acct:[id number] Loc: [facility] ADM Date: 03/10/25Attending Dr: Ordering Physician: Nakia Desir APRN Date of Service: 03/10/25 Procedure(s): XR shoulder LT min 2V Accession Number(s): [id number] cc: Kaleb, Tash KIMBLE; Nakia Desir APRN~ XR shoulder LT min 2V Ordering provider: Nakia Desir NP History: . pain left shoulder moved heavy pot . Comparison: None. FINDINGS: BONES: No acute fracture or dislocation. JOINT SPACES: The acromioclavicular joint is normal. The glenohumeral joint is normal. SOFT TISSUES: Normal. IMPRESSION: No acute osseous abnormality left shoulder. Reviewed, dictated and finalized at location A. Please be advised this is a medical document. It is intended for [id number] communication. It is written in medical language and may contain unfamiliar abbreviations or verbiage. Medical documents are intended to carry relevant information, facts as evident, and the clinical opinion of the practitioner at the time of the encounter. This report may have been done utilizing a voice recognition system. Attempts have been made to correct errors. However, there may be uncorrected grammatical, spelling, and recognition errors present. The file time of this note does not necessarily represent the time of service. Dictated By: Beni Becerril MD 03/10/25 1728 Signed By: <Electronically signed by Beni Becerril MD in OV> Critical Care Time Critical Care Time Critical Care Time: No Discharge Plan Discharge Clinical Impression: Left shoulder strain Qualifiers: Encounter type: initial encounter Qualified Code(s): S46.912A - Strain of unspecified muscle, fascia and tendon at shoulder and upper arm level, left arm, initial encounter Patient Disposition: Home Condition: Stable Instructions: Antibiotic Form, Shoulder Pain (ED), Early Postoperative or Post Injury Shoulder Exercises (ED) Additional Instructions: Ice and heat to the area for 20-30 minutes Gentle stretching exercises Gentle massage Avoid lifting, bending, stooping, twisting Avoid pushing, pulling take muscle relaxants as directed--caution drowsiness and no driving or alcohol take only at night Anti-inflammatory medicine as directed--take with food such as Ibuprofen May use topical ointment such as Vance Parada with Lidocaine or Biofreeze He may take the muscle relaxant and anti-inflammatory at the same time prednisone for the next 5 days for inflammation take with food If your symptoms persist, change or worsen significantly before you can contact your personal physician then please, without delay, go to the emergency department for further evaluation. Follow-up with PCP in 7-10 days or sooner if needed Patient Language: Mosotho Prescriptions: New prednisone 20 mg tablet 20 mg PO BID Qty: 10 0RF Rx Instructions: with food cyclobenzaprine 10 mg tablet 10 mg PO HS Qty: 20 0RF Follow-up/Referrals: Kaleb,Tash Granger MD [Primary Care Provider] - Time of Disposition: 17:51 Quality Juli Coma Scale Eyes: Open Verbal: Oriented and Alert Motor: Follows Commands Rogers Coma Total Score: 15
[2025-03-10 16:46] VITALS: BP 126/86; PULSE 68; RESP 17; TEMP 37.1; O2SAT 98
== END 2025-03-10 17:58 | disposition home or self-care (01) ==
PROVIDERS: Emergency Provider Registered Nurse; PCP Internal Medicine
DX: S46.912A Strain of unspecified muscle, fascia and tendon at shoulder and upper arm level, left arm, initial encounter (principal); X50.0XXA Overexertion from strenuous movement or load, initial encounter
CPT/HCPCS: 73030; 99213; G0463